=== PATIENT | female | born 1945 | race Two or more races ===

== ENCOUNTER 2021-07-22 13:44 | Emergency (ER) | payer OTHER ==
[~2021-07-22] VITALS: Ht 152.4 cm; Wt 63.5 kg
[~2021-07-22 13:44] MED LIST: ASA81 MG; FLOVENT DISKUS50 MCG; LORATADINE10 MG; MONTELUKAST SOD10 MG; NABUMETONE500 MG PO; NABUMETONE750 MG; NEURONTIN300 MG PO; PERCOCET 5/3251 TAB PO; PNEU16DI2; PROMETHAZINE W118 ML PO; SYNTHROID50 MCG; TESSALON PERLE100 M1 PO; VENTOLIN HFA18 GM; ZITHROMAX500 MG PO; ZOCOR40 MG
== END 2021-07-22 18:56 | disposition home or self-care (01) ==
LOC: ER 13:44
DX: M79.672 Pain in left foot (principal); M79.642 Pain in left hand; R07.89 Other chest pain

== ENCOUNTER 2021-08-29 12:37 | Emergency (ER) | payer OTHER ==
[~2021-08-29] VITALS: Ht 152.4 cm; Wt 64.0 kg
[2021-08-29] MEDS ORDERED: VIVLODEX5 MG (12:56)
[2021-08-29] MEDS ORDERED: PREDNISONE20 M1 (12:56)
== END 2021-08-29 17:23 | disposition left against medical advice (07) ==
LOC: ER 12:37
DX: M25.562 Pain in left knee (principal); M19.90 Unspecified osteoarthritis, unspecified site

== ENCOUNTER 2024-05-04 17:31 | Emergency (ER) | payer OTHER ==
[~2024-05-04] VITALS: Ht 152.4 cm; Wt 66.2 kg
[~2024-05-04 17:31] MED LIST changes: +PREDNISONE20 M1; +VIVLODEX5 MG
[2024-05-04] MEDS ORDERED: LOSARTAN POTAS100 MG PO (17:48)
[2024-05-04] MEDS ORDERED: CHILDREN'S ASPI81 MG PO (17:49)
[2024-05-04] MEDS ORDERED: KETOROLAC TROMETHAMINE 60 MG VIAL IM ONE ×2 (19:43→19:45)
[2024-05-04] MEDS ORDERED: DEXAMETHASONE SODIUM PHOSPHATE 4 MG/ML VIAL ONE (19:44)
[2024-05-04] MEDS ORDERED: ORPHENADRINE CITRATE 30 MG/ML AMPUL ONE (19:44)
[2024-05-04] MEDS ORDERED: FAMOTIDINE/PF 20 MG/2 ML VIAL ONE (19:44)
[2024-05-04] MEDS ORDERED: FAMOtidine 10 MG/ML (4ML VIAL) IV ONE (19:45)
[2024-05-04] MEDS ORDERED: DEXAMETHASONE SODIUM PHOSPHATE 4 MG/ML VIAL IM ONE (19:45)
[2024-05-04] MEDS ORDERED: ORPHENADRINE CITRATE 30 MG/ML AMPUL IM ONE (19:45)
[2024-05-04 20:13] LABS: HEMATOCRIT 36.7 % (36.0-45.00); HEMOGLOBIN 12.2 g/dL (12.0-15.00); MEAN CORPUSCULAR HEMOGLOBIN 30.2 pg (27.00-32.0); MEAN CORPUSCULAR HGB CONC 33.2 g/dl (32.0-36.0); PLATELET COUNT 294 K/uL (150-450); RED BLOOD COUNT 4.03 M/uL (4.00-6.00); RED CELL DISTRIBUTION WIDTH 13.6 % (11.5-14.5)
[2024-05-04 20:43] LABS: ALBUMIN 3.7 gm/dL (3.4-5.0); BILIRUBIN TOTAL 0.33 mg/dL (0.3-1.2); CALCIUM 9.4 mg/dL (8.5-10.1); CREATININE SERUM 0.71 mg/dL (0.55-1.02); GFR 80.04; GLOBULINA 4.3 G/DL (2.4-3.5); POTASSIUM 3.81 mEq/L (3.5-5.1)
[2024-05-04 20:53] LABS: PH,URINE 5.5 (5.0-8.0); URINE APPEARANCE Clear; URINE BILIRRUBIN Negative (NEGATIVE); URINE BLOOD Negative; URINE COLOR Yellow; URINE GLUCOSE Negative (NEGATIVE); URINE KETONE Negative (NEGATIVE); URINE LEUKOCYTE Negative; URINE NITRATE Negative; URINE PROTEIN Negative (NEGATIVE); URINE UROBILINOGEN 0.2 E.U./dl
[2024-05-04 20:56] LABS: URINE BACTERIA 7.3 uL (0.0-1933); URINE EPITHELIAL CELLS 2.2 uL (0.0-38.8); URINE RBC 2.3 uL (0.0-20.8); URINE WBC 4.5 uL (0.0-23.2)
[2024-05-04] MEDS ORDERED: BACLOFEN10 MG PO (21:28)
[2024-05-04] MEDS ORDERED: IBU600 MG PO (21:28)
== END 2024-05-04 21:54 | disposition home or self-care (01) ==
LOC: ER 17:33
PROVIDERS: Preventive Medicine Public Health & General Preventive Medicine
DX: M54.9 Dorsalgia, unspecified (principal); I10 Essential (primary) hypertension; E03.8 Other specified hypothyroidism